=== PATIENT | male | born 1955 | race Caucasian/White ===

== ENCOUNTER 2018-07-03 12:15 | Day surgery (SDC) | payer MEDICARE ==
[~2018-07-03 12:15] MED LIST: ADULT ASPIRIN E81 MG PO; BUMETANIDE1 MG PO; CALCIUM + D600 MG PO; CO Q-10 PO; E 10001000 UNIT PO; INDERAL 20MG TA20 MG PO; IRON45 MG PO; METFORMIN500 MG PO; MILK THISTL PO; VITAMIN B-COMPL1 TAB PO; VITAMIN C1000 MG PO; [UNRECOGNIZED DRUG - OTHER] PO
[2018-07-03 16:04] VITALS: BP 129/65
== END 2018-07-03 14:47 | disposition home or self-care (01) ==
LOC: ENDO 12:15
PROVIDERS: ATTEND Internal Medicine Gastroenterology
PROC: 0DBL8ZX Excision of Transverse Colon, Via Natural or Artificial Opening Endoscopic, Diagnostic (ICD-10-PCS; principal; 2018-07-03)
PROC: 0DBK8ZX Excision of Ascending Colon, Via Natural or Artificial Opening Endoscopic, Diagnostic (ICD-10-PCS; 2018-07-03)
PROC: 0DBF8ZX Excision of Right Large Intestine, Via Natural or Artificial Opening Endoscopic, Diagnostic (ICD-10-PCS; 2018-07-03)
PROC: 0DJ08ZZ Inspection of Upper Intestinal Tract, Via Natural or Artificial Opening Endoscopic (ICD-10-PCS; 2018-07-03)
DX: Z12.11 Encounter for screening for malignant neoplasm of colon (principal); K64.4 Residual hemorrhoidal skin tags; K64.8 Other hemorrhoids; D12.3 Benign neoplasm of transverse colon; D12.2 Benign neoplasm of ascending colon; K50.10 Crohn's disease of large intestine without complications; K74.60 Unspecified cirrhosis of liver; I85.10 Secondary esophageal varices without bleeding; K21.9 Gastro-esophageal reflux disease without esophagitis; K44.9 Diaphragmatic hernia without obstruction or gangrene; K29.70 Gastritis, unspecified, without bleeding; K76.6 Portal hypertension; K31.89 Other diseases of stomach and duodenum; E11.9 Type 2 diabetes mellitus without complications; I25.10 Atherosclerotic heart disease of native coronary artery without angina pectoris; I11.0 Hypertensive heart disease with heart failure; I50.9 Heart failure, unspecified; I25.2 Old myocardial infarction; Z95.0 Presence of cardiac pacemaker; Z86.73 Personal history of transient ischemic attack (TIA), and cerebral infarction without residual deficits

== ENCOUNTER → 2018-12-15 | Outpatient (REF) | payer MEDICARE ==
[2018-12-15 16:04] LABS: HEMATOCRIT 42.2 % (39.0-50.0); HEMOGLOBIN 14.1 g/dl (14.0-18.0); IMMATURE GRANULOCYTES 0.3 % (0.0-5.0); MEAN CELL VOLUME 94.4 fL CALC (80.0-100.0); MEAN CORPUSCULAR HGB 31.5 pG CALC (26.0-32.0); MEAN CORPUSCULAR HGB CONC 33.4 g/L CALC (32.0-36.0); NEUT# 4.35 thou/uL (1.82-7.42); RED BLOOD COUNT 4.47 mill/uL (4.70-6.10); RED CELL DISTRI WIDTH 14.4 % (11.5-15.5)
[2018-12-15 16:22] LABS: ALBUMIN 3.8 g/dL (3.2-5.0); ALKALINE PHOSPHATASE 66 u/l (38-126); ANION GAP 14 (6-22 (CALC)); BILIRUBIN, TOTAL 1.6 mg/dL (0.0-1.4); BUN 11 mg/dL (8-23); BUN/CREATININE RATIO 21 (12-20 (CALC)); CARBON DIOXIDE 28 mmol/l (22-30); CHLORIDE 101 mmol/l (95-108); CREATININE 0.5 mg/dL (0.7-1.3); GFR > 60 ML/MIN (>=60 (CALC)); GFR FOR AFR.AMER. > 60 ML/MIN (>=60 (CALC)); POTASSIUM 4.4 mmol/l (3.5-5.1); SGOT/AST 35 u/l (19-48); SODIUM 139 mmol/l (137-146); TOTAL PROTEIN 7.7 g/dL (6.3-8.2)
== END | disposition home or self-care (01) ==
LOC: LAB 15:34
PROVIDERS: ATTEND Internal Medicine Gastroenterology
DX: K74.60 Unspecified cirrhosis of liver (principal)

== ENCOUNTER 2020-12-19 16:00 | Observation (INO) | payer MEDICARE ==
[~2020-12-19] VITALS: Ht 172.7 cm; Wt 74.0 kg
[~2020-12-19 16:00] MED LIST changes: -ADULT ASPIRIN E81 MG PO; +ASPIRIN 81 LOW81 MG PO; -MILK THISTL PO; +MILK THISTLE175 MG PO
--- NOTE | 2020-12-19 16:20 | NUR ---
PT ARRIVED VIA WC WITH STAFF.
[2020-12-19 16:38] VITALS: BP 124/68
--- NOTE | 2020-12-19 16:45 | NUR ---
IV SITE OBTAINED IN [facility] WITH #20 1 ATTEMPT ALSO LABS DRAWN FROM THE SITE. COVID TESTING FROM [facility] OBTAINED. UA OBTAINED AND SENT FOR TESTING.
--- NOTE | 2020-12-19 16:50 | NUR ---
ASSESSMENT IS COMPLETED: IV SITE OBTAINED IN R OUTER AC, BREATH SOUNDS ARE WHEEZING, ALSO AUDIBLE WHEEZING NOTED. DOES HAVE A COUGH NO SPUTUM. HR IS REG,PULSES ARE STRONG , ABD IS DISTENDED AND SOFT. WITH ACTIVE BS. HAS +3 PITTING EDEMA NOTED ON BILATERAL FEET. SOME EDEMA NOTED ON ARMS. CONTINUE TO OBSERVE AND MONITOR. TELE MONITOR IN PLACE.
[2020-12-19 17:27] LABS: HEMATOCRIT 41.2 % (39.0-50.0); HEMOGLOBIN 13.5 g/dl (14.0-18.0); IMMATURE GRANULOCYTES 0.5 % (0.0-5.0); MEAN CORPUSCULAR HGB 29.5 pG CALC (26.0-32.0); MEAN CORPUSCULAR HGB CONC 32.8 g/dL CAL (32.0-36.0); NEUT# 7.88 thou/uL (1.82-7.42); RED BLOOD COUNT 4.58 mill/uL (4.70-6.10); RED CELL DISTRI WIDTH 14.8 % (11.5-15.5)
[2020-12-19 17:52] LABS: ALBUMIN 3.9 g/dL (3.2-5.0); ALKALINE PHOSPHATASE 186 u/l (38-126); ANION GAP 10 (6-22 (CALC)); BILIRUBIN, TOTAL 1.9 mg/dL (0.0-1.4); BUN 18 mg/dL (8-23); BUN/CREATININE RATIO 24 (12-20 (CALC)); CARBON DIOXIDE 33 mmol/l (22-30); CHLORIDE 93 mmol/l (95-108); CREATININE 0.7 mg/dL (0.7-1.3); GFR > 60 ML/MIN (>=60 (CALC)); GFR FOR AFR.AMER. > 60 ML/MIN (>=60 (CALC)); POTASSIUM 4.1 mmol/l (3.5-5.1); SGOT/AST 40 u/l (19-48); SODIUM 132 mmol/l (137-146); TOTAL PROTEIN 8.1 g/dL (6.3-8.2)
[2020-12-19 17:52] LABS: URINE BILIRUBIN - DIPSTICK NEGATIVE (NEGATIVE); URINE BLOOD DIPSTICK NEGATIVE (NEGATIVE); URINE CLARITY CLEAR; URINE GLUCOSE - DIPSTICK NEGATIVE (NEGATIVE); URINE KETONE NEGATIVE (NEGATIVE); URINE LEUK ESTERASE NEGATIVE (Negative); URINE NITRITE - DIPSTICK NEGATIVE (Negative); URINE PH 5.5 (4.5-8.0); URINE PROTEIN - DIPSTICK NEGATIVE (NEG-TRACE); URINE SPECIFIC GRAVITY >=1.030
[2020-12-19 17:53] LABS: URINE COLOR DK. YELLOW
[2020-12-19 19:00] VITALS: BP 120/66
--- NOTE | 2020-12-19 23:54 | NUR ---
PT RESTING IN BED. ADMINSTERED PO ALDACTONE AND IV BUMEX FOR EDEMA. NO AUDIBLE WHEEZING NOTED SO FAR THIS SHIFT. SCATTERED WHEEXING THROUGHOUT LUNG VILLALBA. C/O PAIN PRIOR TO GOING TO XRAY, ADMINSTERED MORPHINE IV. PT TOLERATED WELL. WILL MONITOR
[2020-12-20] VITALS (8 sets, daily range): BP systolic 107–146; BP diastolic 61–77
--- NOTE | 2020-12-20 01:07 | NUR ---
PT IN BED AT THIS TIME, VERY CONCERED THAT HE WILL HAVE A URINARY ACCIDENT IN THE BED. PT REQUESTED BRIEF JUST IN CASE. BRIEF APPLIED BY BIOCHEMISTRY SPECIALIST, PT TOLERATED WELL. EDEMA REMAINS TO BLLE 3+ PITTING EDEMA. PT REQUESTED ADDITIONAL PAIN RELIEF FOR FX TO L3, ADMINSTERED MORPHINE FOR PAIN. PT TOLERATED WELL. WILL CONTINUE TO MONITOR.
--- NOTE | 2020-12-20 03:54 | NUR ---
PT IN BED WITH EYES OPEN. ABLE TO MAKE NEEDS KNOWN. NO COMPLAINTS VOICED AT THIS TIME. NO S/S OF DISTRESS NOTED. WILL MONITOR.
[2020-12-20 06:09] LABS: ALBUMIN 3.2 g/dL (3.2-5.0); ALKALINE PHOSPHATASE 151 u/l (38-126); ANION GAP 11 (6-22 (CALC)); BILIRUBIN, TOTAL 1.6 mg/dL (0.0-1.4); BUN 16 mg/dL (8-23); BUN/CREATININE RATIO 24 (12-20 (CALC)); CARBON DIOXIDE 30 mmol/l (22-30); CHLORIDE 94 mmol/l (95-108); CREATININE 0.7 mg/dL (0.7-1.3); GFR > 60 ML/MIN (>=60 (CALC)); GFR FOR AFR.AMER. > 60 ML/MIN (>=60 (CALC)); POTASSIUM 3.7 mmol/l (3.5-5.1); SGOT/AST 35 u/l (19-48); SODIUM 131 mmol/l (137-146)
--- NOTE | 2020-12-20 07:00 | NUR ---
PT REPORT RECEIVED FROM NIGHT NURSEZANDER
--- NOTE | 2020-12-20 08:20 | NUR ---
PT WAS FOUND RESTING IN BED IN SEMI-FOWLERS POSITION;PT IS A & OX3;PT REPORTS NO PAIN AT THIS TIME;PT HAS A PACEMAKER IN PLACE;PT HAS WHEEZING IN ALL LUNG VILLALBA;PT IS ON RA WITH RESPIRATIONS THAT ARE EVEN AND UNLABORED AND NO SHORTNESS OF BREATH NOTED;PT HAS PITTING EDEMA PRESENT IN HIS FEET BILATERALLY;LEFT FOOT IS 2+ WITH HIS RIGHT FOOT 1+;#20G IV IN RAC SL, PATENT AND FREE OF COMPLICATIONS;SAFETY PRECAUTIONS IN PLACE;CALL LIGHT WITHIN REACH;BED IN LOWEST POSITION;WILL CONTINUE TO MONITOR.
--- NOTE | 2020-12-20 09:55 | NUR ---
DR. BROOKS AND NORBERTO RODRÍGUEZ AT BEDSIDE.
[2020-12-20] MEDS ORDERED: OXYCODONE5 M1 PO (10:48)
[2020-12-20] MEDS ORDERED: ALDACTONE100 MG PO (10:49)
[2020-12-20] MEDS ORDERED: LANTUS100 UNIT/M SC (10:50)
[2020-12-20] MEDS ORDERED: PREDNISONE10 MG PO (10:51)
[2020-12-20] MEDS ORDERED: OMEPRAZOLE DR20 MG PO (10:51)
[2020-12-20] MEDS ORDERED: ORPHENADRINE C100 M1 PO (10:51)
--- NOTE | 2020-12-20 12:30 | NUR ---
PT WAS FOUND SITTING IN BED EATING LUNCH;PT REPORTS LOWER BACK /10;PT MEDICATED WITH OXYCODONE 5MG;TELE IN PLACE READING PACED WITH PVC'S @110BPM;#20G IV IN RAC IS SL, PATENT AND FREE OF COMPLICATIONS AT THIS TIME;SAFETY PRECAUTIONS IN PLACE;CALL LIGHT WITHIN REACH;BED IN LOWEST POSITION;WILL CONTINUE TO MONITOR.
--- NOTE | 2020-12-20 15:40 | NUR ---
PT WAS FOUND NAPPING IN BED;TELE IN PLACE;#20G IV IN RAC IS SL, PATENT AND FREE OF COMPLICATIONS;SAFETY PRECAUTIONS IN PLACE;CALL LIGHT WITHIN REACH;BED IN LOWEST POSITION;WILL CONTINUE TO MONITOR.
--- NOTE | 2020-12-20 17:21 | NUR ---
CALL RECEIVED FROM FROM YADY FROM [facility], PT TO BE TRANSFERRED TO [facility] [address]. NUMBER FOR REPORT [phone]
--- NOTE | 2020-12-20 17:29 | NUR ---
CALL MADE TO NATALY AT [facility];ESTIMATED TIME FOR RESISTANCE WELDER FOR TRANSPORT TO [facility] 1900.
--- NOTE | 2020-12-20 19:33 | NUR ---
SBAR REPORT RECEIVED FROM NAHUN JULIAN. PATIENT SITTING UP AT BEDSIDE EATING DINNER TOLERATING WELL. NO DISTRESS NOTED. CALL LIGHT WITHIN REACH.
--- NOTE | 2020-12-21 00:44 | NUR ---
PATIENT DISCHARGED WITH [facility] VIA STRETCHER FOR TRANSFER TO [facility]. PATIENT AWAKE, ALERT AND ORIENTED. DISCONTINUED TELEMETRY. IV REMAINS ACCESSED TO THE RIGHT ANTECUBITAL, PATENT. NO DISTRESS NOTED AT TIME OF TRANSFER.
--- NOTE | 2020-12-21 00:50 | NUR ---
CALLED DAUGHTER BISHOP URENA @ [phone] TO NOTIFY OF TRANSFER. CALL UNSUCCESSFUL, VOICE MESSAGE LEFT REQUESTING RETURN CALL.
--- NOTE | 2020-12-21 01:01 | NUR ---
REPORT CALLED TO FARRUKH ROBB @ [facility] [phone]. NURSE ALSO INFORMED OF ATTEMPT TO NOTIFY DAUGHTER. PROVIDED DAUGHTER'S NAME AND NUMBER TO RECEIVING NURSE.
== END 2020-12-21 00:40 | disposition short-term general hospital (02) ==
LOC: MS2 16:00
PROVIDERS: ADMIT Internal Medicine; ATTEND Internal Medicine
DX: I11.0 Hypertensive heart disease with heart failure (principal); I50.9 Heart failure, unspecified; M48.56XA Collapsed vertebra, not elsewhere classified, lumbar region, initial encounter for fracture; E11.9 Type 2 diabetes mellitus without complications; I25.10 Atherosclerotic heart disease of native coronary artery without angina pectoris; K74.60 Unspecified cirrhosis of liver; Z95.0 Presence of cardiac pacemaker; Z79.84 Long term (current) use of oral hypoglycemic drugs; Z86.73 Personal history of transient ischemic attack (TIA), and cerebral infarction without residual deficits; Z20.822 Contact with and (suspected) exposure to COVID-19
CPT/HCPCS: J1650